=== PATIENT | male | born 1945 | race Caucasian/White ===

== ENCOUNTER 2016-05-28 15:13 | Emergency (ER) | payer MEDICARE ==
[2016-05-28] MEDS ORDERED: Multivitamin Inj 10 mL Vial IV ONE (15:18)
--- NOTE | 2016-05-29 11:12 | Diagnostic Imaging Report ---
CT scan lumbar spine HISTORY: Pain, trauma Total DLP equals 1094 CTDI equals 41.0 Axial sections were obtained through the lumbar spine. Additional sagittal and coronal reformatted images are provided. The exam demonstrates spondylolisthesis of L5 on S1 (approximately 15% displacement). Bilateral pars defects (spondylolysis) noted. Hypertrophic changes noted about the pars defects and about the facet joints. Degenerative spur formation noted about the endplates of all vertebrae. No acute abnormalities. No fractures. Atherosclerotic vascular calcination seen within the abdominal aorta and iliac vessels. IMPRESSION: 1. Spondylolisthesis of L5 on S1 with bilateral spondylolysis 2. Degenerative changes 3. Athetotic vascular changes
--- NOTE | 2016-05-29 21:10 | ED Physician Chart ---
Chief Complaint/HPI - Patient Information Date Seen:: 05/28/16 Time Seen:: 14:00 Chief Complaint:: LOW BACK PAIN AFTER FALL OFF OF LADDER History of Present Illness:: The 70-year-old male fell approximately 3 feet from a ladder landing on carpet that was over lying cement. there was no head injury or loss of consciousness. The patient has no neck pain, numbness, or loss of muscle strength and the upper or lower extremities. He rates the pain severity is a 4 to 5/10 and it is made worse by movement. At rest he has very minimal pain. No prior history of falling or back injury. Allergies:: Allergies Allergy/AdvReac Type Severity Reaction Status Date / Time No Known Allergies Allergy Verified 05/28/16 15:31 Review of Systems - Review of Systems General/Constitutional: No fever, No chills, No weakness, No diaphoresis, No loss of appetite Skin: No skin lesions, No rash Head: No headache, Light headed ( The patient takes medications for high blood pressure and his primary physician has told him to get up slowly because when he gets a fast he feels lightheaded.) Eyes: No loss of vision, No diplopia Neck: No neck pain, No stiffness, No mass noted Cardio Vascular: No chest pain, No palpitations, No PND, No edema Pulmonary: No SOB, No cough, No sputum, No wheezing GI: No nausea, No vomiting, No diarrhea, No constipation, No hematemesis G/U: No dysuria, No frequency, No hematuria Musculoskeletal: No bone or joint pain, Back pain, No muscle pain Endocrine: No polyuria, No polydipsia Psychiatric: No prior psych history, No suicidal ideation Hematopoietic: No bruising, No lymphadenopathy Allergic/Immuno: No urticaria, No angioedema Neurological: No syncope, No focal symptoms, No weakness, No paresthesia, No headache, No seizure, No dizziness, No confusion, No vertigo Past Medical History - Past Medical History Past Medical History: HTN, CAD Social History: Non Smoker, No Drug Use, 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 Surgical History: CABG ( Antiplatelet medication) Family Medical History - Family Member Mother History Unknown: Yes Ethnicity: Non- Living Status: Physical Exam - Physical Examination General/Constitutional: Awake, Well-developed, well-nourished, Alert, GCS 15, Non-toxic appearing, Ambulatory Other Gen/Cons comments:: minimal distress from low back pain. Head: Atraumatic Eyes: Lids, conjuctiva normal, PERRL, EOMI Skin: Nl inspection, No rash, No skin lesions, No ecchymosis, Well hydrated ENMT: External ears, nose nl, Nasal exam nl ( No C-spine tenderness and spine cleared by nexus criteria), Lips, teeth, gums nl, Oropharynx nl, Tonsils nl Neck: Nontender, Full ROM w/o pain, No JVD, No nuchal rigidity, No mass, No stridor Respiratory: Nl effort/Exclusion, Clear to Auscultation, No Wheeze/Rhonchi/Rales Other Respiratory comments:: will healed sternotomy scar. Cardio Vascular: RRR, No murmur, gallop, rubs, NL S1 S2 ( Good pulses in all four extremities.) GI: No tenderness/rebounding/guarding, No organomegaly, No hernia, Normal BS's, Nondistended, No mass/bruits, No McBurney tenderness Other GI comments:: Rectal exam deferred at my discretion. : No CVA tenderness, NL external genitalia Extremities: No tenderness or effusion, Full ROM, normal strength in all extremities, No edema Neuro/Psych: Alert/oriented, DTR's symmetric, Normal sensory exam, Normal motor strength, Judgement/insight normal, Mood normal, Normal gait, No focal deficits Other Neuro/Psych comments:: sensory intact to light touch in all four extremities. Normal strength in all four extremities. Misc: No paraspinal tenderness Other Misc comments:: Mild To moderate tenderness in the L4 L5 region. No paraspinous muscle spasm. Labs/Radiology/EKG Results - Lab Results Results: the CT scan of the lumbar spine showed no acute traumatic injuries. No fractures. The patient has moderate to severe degenerative joint disease. But Assessment - Assessment General Assessment: CASE SUMMARY: the 70-year-old male who has a prior history of hypertension and coronary artery disease fell about 3 feet off of a ladder landing on his back on a carpet that was covering cement. There was no loss of consciousness and the patient has no headache or chest pain. No neck pain. He has mild back pain in the lower lumbar region. CT scan of the lumbar spine showed no acute fractures or subluxation and chronic advanced degenerative disc disease. The patient was given a prescription for David 10/325, number 15, take one every six hours as needed for back pain. Patient was given the usual precautions regarding mixing with alcohol, driving in activities requiring alertness. The patient has a primary care physician and he will follow up with him this coming week. Indications for return to the emergency department were discussed with both the patient and his prior to discharge. MDM DDX FOR FALL OFF LADDER: NO Acute head injury based on history and examination. NO C-spine injury based on Nexus criteria. NO LUMBAR FRACTURES BASED ON NEGATIVER CT OF LUMBAR AREA. ED Septic Shock - . Is Septic Shock (SBP<90, OR Lactate>4 mmol\L) present?: No Reassessment (Disposition) - Reassessment Reassessment Condition:: Improved - Diagnosis Diagnosis:: FALL FROM LADDER, LOW BACK CONTUSION, DEGENERATIVE DISC DISEASE, CAD, HTN - Aftercare/Follow up Instructions Aftercare/Follow-Up Instructions:: Counseled pt regarding lab results/diagnosis & need follow up Medication Prescribed:: David 10/325, dispense 15, sig take one every six hours as needed for back pain. Patient given usual precautionary instructions. ED Discharge Plan - Patient Disposition Admit/Discharge/Transfer: PT DISCHARGED HOME Condition at Disposition: Stable Instructions: Degenerative Disk Disease, Fall Prevention and Home Safety
== END 2016-05-28 16:30 | disposition home or self-care (01) ==
LOC: ER 15:13
DX: S30.0XXA Contusion of lower back and pelvis, initial encounter (principal); M51.36 Other intervertebral disc degeneration, lumbar region; I25.10 Atherosclerotic heart disease of native coronary artery without angina pectoris; I10 Essential (primary) hypertension; W11.XXXA Fall on and from ladder, initial encounter; Y93.89 Activity, other specified; Y92.89 Other specified places as the place of occurrence of the external cause; Y99.8 Other external cause status
CPT/HCPCS: 72131-TC; X6598; Z7502